=== PATIENT | female | born 1990 | race Caucasian/White ===

== ENCOUNTER 2022-01-13 17:36 | Emergency (ER) | payer OTHER ==
[2022-01-13 18:00] VITALS: BP 105/68; PULSE 87; TEMP 98.1; BMI 18.3
[2022-01-13 19:07] LABS: BASO % 0.8 % (0-2.0); EOS % 1.5 % (0-4.5); HEMATOCRIT 35.1 % (32.4-45.2); HEMOGLOBIN 11.7 GM/dL (10.7-15.3); LYMPH % 31.3 % (8-40); MCHC 33.4 g/dl (32.0-36.0); MEAN CELL VOLUME 89.7 fl (80-96); MEAN PLT VOLUME 8.7 fl (7.5-11.1); MONO % 10.8 % (3.8-10.2); NEUT % 55.6 % (42.8-82.8); PLATELET COUNT 289 10^3/uL (134-434); RBC 3.91 M/mm3 (3.60-5.2); WHITE BLOOD COUNT 6.8 K/mm3 (4.0-10.0)
[2022-01-13 19:10] LABS: HCG,QUALITATIVE URINE Positive
[2022-01-13 19:11] LABS: EPI CELLS >36 /uL (0-25.1); HYALINE CASTS 1 /uL (0-3.1); PH,URINE 7.5 (5.0-8.0); URINE APPEARANCE TURBID; URINE BACTERIA 2551 /uL (0-1359); URINE BILIRUBIN NEGATIVE (NEGATIVE); URINE COLOR YELLOW; URINE GLUCOSE (UA) NEGATIVE (NEGATIVE); URINE KETONE NEGATIVE (NEGATIVE); URINE LEUK ESTERASE NEGATIVE (NEGATIVE); URINE NITRITE NEGATIVE (NEGATIVE); URINE PROTEIN NEGATIVE (NEGATIVE); URINE RBC 4 /uL (0-23.9); URINE WBC 7 /uL (0-25.8)
[2022-01-13 19:31] LABS: CALCIUM 9.7 mg/dL (8.5-10.1)
[2022-01-13 19:32] LABS: ALBUMIN 3.9 g/dl (3.4-5.0); BLOOD UREA NITROGEN 10.6 mg/dL (7-18)
[2022-01-13 19:35] LABS: CREATININE 0.5 mg/dL (0.55-1.3)
[2022-01-13 19:36] LABS: BILIRUBIN,TOTAL 0.3 mg/dL (0.2-1); TOT PROT 7.6 g/dl (6.4-8.2)
== END 2022-01-13 21:45 | disposition home or self-care (01) ==
LOC: JERFT 17:36
DX: O20.0 Threatened abortion (principal); Z3A.01 Less than 8 weeks gestation of pregnancy
CPT/HCPCS: 36415; 76817-TC; 80053; 81003; 84702; 84703; 85025; 86850; 86900; 86901; 87086; 99284-25

== ENCOUNTER 2022-01-16 17:59 | Emergency (ER) | payer OTHER ==
[2022-01-16 18:12] VITALS: BP 98/64; PULSE 96; TEMP 97.9; BMI 18.3
== END 2022-01-16 20:46 | disposition home or self-care (01) ==
LOC: JER 17:59 → JERFT 17:59
DX: Z32.01 Encounter for pregnancy test, result positive (principal)
CPT/HCPCS: 36415; 84702; 99283-25

== ENCOUNTER 2022-01-18 18:36 | Emergency (ER) | payer OTHER ==
[2022-01-18 18:43] VITALS: BP 104/69; PULSE 99; TEMP 97.9; BMI 19.2
== END 2022-01-18 21:38 | disposition home or self-care (01) ==
LOC: JERFT 18:36
DX: Z32.01 Encounter for pregnancy test, result positive (principal)
CPT/HCPCS: 36415; 84702; 99283-25

== ENCOUNTER 2022-01-23 18:38 | Emergency (ER) | payer OTHER ==
[2022-01-23 19:12] VITALS: TEMP 98; BMI 18.3
[2022-01-23 21:13] VITALS: BP 98/61; PULSE 85
== END 2022-01-23 21:50 | disposition home or self-care (01) ==
LOC: JER 18:38
DX: O36.80X0 Pregnancy with inconclusive fetal viability, not applicable or unspecified (principal); O02.81 Inappropriate change in quantitative human chorionic gonadotropin (hCG) in early pregnancy
CPT/HCPCS: 36415; 76830-TC; 84702; 99284-25

== ENCOUNTER 2022-02-02 10:20 | Emergency (ER) | payer OTHER ==
[2022-02-02 11:11] VITALS: BMI 18.3
[2022-02-02] MEDS ORDERED: METOCLOPRAMIDE HCL INJECTION 10 MG/2 ML VIAL IVPUSH ONE (12:00)
[2022-02-02] MEDS ORDERED: LACTATED RINGERS SOLUTION 1000 ML INFUS.BAG IV ONE (12:00)
[2022-02-02] MEDS ORDERED: METOCLOPRAMIDE HCL INJECTION 10 MG/2 ML VIAL ONE (12:33)
[2022-02-02 13:29] LABS: BASO % 0.7 % (0-2.0); EOS % 0.1 % (0-4.5); HEMATOCRIT 35.1 % (32.4-45.2); HEMOGLOBIN 11.5 GM/dL (10.7-15.3); LYMPH % 14.6 % (8-40); MCH 29.8 pg (25.7-33.7); MCHC 32.7 g/dl (32.0-36.0); MEAN CELL VOLUME 91.3 fl (80-96); MEAN PLT VOLUME 9.1 fl (7.5-11.1); MONO % 7.5 % (3.8-10.2); NEUT % 77.1 % (42.8-82.8); PLATELET COUNT 250 10^3/uL (134-434); RBC 3.85 M/mm3 (3.60-5.2); RDW 13.2 % (11.6-15.6); WHITE BLOOD COUNT 8.2 K/mm3 (4.0-10.0)
[2022-02-02 13:41] LABS: CALCIUM 10.2 mg/dL (8.5-10.1)
[2022-02-02 13:44] LABS: CREATININE 0.5 mg/dL (0.55-1.3)
[2022-02-02 13:46] LABS: BILIRUBIN,TOTAL 0.6 mg/dL (0.2-1); TOT PROT 7.4 g/dl (6.4-8.2)
[2022-02-02] MEDS ORDERED: ACETAMINOPHEN 325 MG TABLET (FP) PO ONE (15:13)
[2022-02-02] MEDS ORDERED: ACETAMINOPHEN 325 MG TABLET (FP) ONE (15:31)
[2022-02-02 15:45] VITALS: BP 118/74; PULSE 77; TEMP 98
[2022-02-02 16:09] LABS: URINE APPEARANCE CLEAR; URINE BILIRUBIN NEGATIVE (NEGATIVE); URINE COLOR YELLOW; URINE GLUCOSE (UA) NEGATIVE (NEGATIVE); URINE KETONE 4+ (NEGATIVE); URINE LEUK ESTERASE NEGATIVE (NEGATIVE); URINE NITRITE NEGATIVE (NEGATIVE); URINE PROTEIN NEGATIVE (NEGATIVE); URINE UROBILINOGEN 0.2 mg/dL (0.2-1.0)
== END 2022-02-02 15:44 | disposition home or self-care (01) ==
LOC: JER 10:20
PROC: 3E033GC Introduction of Other Therapeutic Substance into Peripheral Vein, Percutaneous Approach (ICD-10-PCS; principal; 2022-02-02)
PROC: 3E033GC Introduction of Other Therapeutic Substance into Peripheral Vein, Percutaneous Approach (ICD-10-PCS; 2022-02-02)
DX: O21.9 Vomiting of pregnancy, unspecified (principal); Z3A.01 Less than 8 weeks gestation of pregnancy
CPT/HCPCS: 36415; 76817-TC; 80053; 81003; 84702; 85025; 87086; 99284-25